=== PATIENT | male | born 1955 | race Two or more races ===

== ENCOUNTER 2024-01-19 18:06 | Emergency (ER) | payer MEDICARE, OTHER ==
[~2024-01-19] VITALS: Ht 152.4 cm; Wt 54.5 kg
[2024-01-19 18:19] VITALS: BP 154/84; PULSE 80; RESP 16; TEMP 97.1
[2024-01-20] MEDS ORDERED: LISI-894 PO (01:24)
[2024-01-20] MEDS ORDERED: SOLI5 PO (01:24)
[2024-01-20] MEDS ORDERED: DIVA-153 PO ×2 (01:24)
[2024-01-20] MEDS ORDERED: ATOR20TA PO (01:24)
[2024-01-20] MEDS ORDERED: METF-1185 PO (01:24)
[2024-01-20] MEDS ORDERED: ARIP15TA27 PO (01:24)
== END 2024-01-20 02:25 | disposition home or self-care (01) ==
LOC: EMS 18:06
DX: I10 Essential (primary) hypertension (principal); E11.9 Type 2 diabetes mellitus without complications
CPT/HCPCS: 99283; Z7502

== ENCOUNTER → 2024-02-18 | Emergency (ER) | payer MEDICARE, OTHER ==
[~2024-02-18] VITALS: Ht 152.4 cm; Wt 70.9 kg
[~2024-02-18] MED LIST: ARIP15TA27 PO; ATOR20TA PO; CETI-450 PO; DIVA-153 PO; HYDR28.35 TP; LISI-894 PO; METF-1185 PO; SOLI5 PO
[2024-02-18 18:59] VITALS: TEMP 98.7
[2024-02-18 22:10] VITALS: BP 170/87; PULSE 74; RESP 18
== END | disposition still patient (30) ==
LOC: EMS 18:24 → EDSEX 18:24
DX: L20.9 Atopic dermatitis, unspecified (principal); F32.A Depression, unspecified; E11.9 Type 2 diabetes mellitus without complications; F20.9 Schizophrenia, unspecified
CPT/HCPCS: 82962; 99282